=== PATIENT | female | born 1990 | race Caucasian/White ===

== ENCOUNTER → 2024-06-15 08:38 | Outpatient (CLI) | payer OTHER, SELFPAY ==
[2024-06-15 15:05] LABS: Urine Chlamydia NOT DETECTED; Urine N gonorrhoeae NOT DETECTED
== END ==
PROVIDERS: PCP Nurse Practitioner Family; Visit Provider Obstetrics & Gynecology
DX: Z34.81 Encounter for supervision of other normal pregnancy, first trimester (principal); Z3A.08 8 weeks gestation of pregnancy
CPT/HCPCS: 87491; 87591

== ENCOUNTER → 2024-06-28 09:58 | Outpatient (CLI) | payer OTHER, SELFPAY ==
[2024-06-28 11:10] LABS: Add Manual Diff / Slide Review NO; Basophils Absolute Auto 0 /uL (0-100); Basophils Percent Auto 0.5 % (0-2); Eosinophils Absolute Auto 100 /uL (0-450); Eosinophils Percent Auto 1.9 % (2-4); Hemoglobin 12.7 g/dL (12.0-16.0); Lymphocytes Absolute Auto 2500 /uL (1100-4500); Lymphocytes Percent Auto 38.1 % (25-40); Mean Corpuscular HGB Conc 33.4 % (30-36); Mean Corpuscular Hemoglobin 29.3 PG (26-34); Mean Corpuscular Volume 87.5 fL (80-100); Monocytes Absolute Auto 400 /uL (0-900); Monocytes Percent Auto 6.3 % (3-14); Neutrophils Absolute Auto 3500 /uL (1500-7000); Neutrophils Percent Auto 53.2 % (50-75); Platelet Count 298 X10^3/uL (150-400); Red Blood Cell Count 4.34 X10^6/uL (4.0-5.2); Red Cell Distribution Width 14.6 % (11.6-14.8); White Blood Cell Count 6.5 X10^3/uL (4.5-11.0)
[2024-06-28 11:45] LABS: Natera Collection Specimen Collected
[2024-06-28 14:55] LABS: Hepatitis B Surface Antigen NEGATIVE s/c (NEGATIVE); Rubella Antibody IgG 95.9 IU/mL (>15)
[2024-06-28 15:08] LABS: HIV 1 & 2 Ab/Ag 4th Gen Combo NEGATIVE (NEGATIVE); Hep C Virus Ab w/Reflex Quant NEGATIVE s/c (NEGATIVE)
[2024-06-29 06:36] LABS: RPR Screen Non Reactive (Non Reactive)
[2024-06-29 10:21] LABS: Varicella IgG Antibody Non Reactive (Non Reactive)
== END ==
PROVIDERS: PCP Nurse Practitioner Family; Referring Provider Nurse Practitioner Family; Visit Provider Obstetrics & Gynecology
DX: Z34.81 Encounter for supervision of other normal pregnancy, first trimester (principal); Z36.0 Encounter for antenatal screening for chromosomal anomalies
CPT/HCPCS: 36415; 80055; 86787; 86803; 86850; 86900; 86901; 87077; 87086; 87147; 87389

== ENCOUNTER → 2024-08-10 08:29 | Outpatient (CLI) | payer OTHER, SELFPAY | PROVIDERS: PCP Nurse Practitioner Family; Referring Provider Obstetrics & Gynecology; Visit Provider Obstetrics & Gynecology | DX: Z34.82 Encounter for supervision of other normal pregnancy, second trimester (principal) | CPT/HCPCS: 36415; 82105 ==

== ENCOUNTER → 2024-09-04 08:08 | Outpatient (CLI) | payer OTHER, SELFPAY ==
--- NOTE | 2024-09-04 08:09 | DI.US.S_ITS ---
PROCEDURE: US OB >= 14 WEEKS FETUS INDICATIONS: ANATOMY OUTSIDE/PRIOR DATING DATA: Working NICANOR is 01/21/2025 TECHNIQUE: Real-time scanning was performed of the fetus, with image documentation and biometric measurements. Endovaginal scanning: No COMPARISON: None. FINDINGS: General: A single living intrauterine gestation is present. Presentation: Variable. Placenta: Placental position is fundal , without previa. Amniotic fluid index: 15.6 cm, normal range is 5-24 cm. Single deepest vertical pocket is 5.5 cm. heart rate: 160 beats per minute. Maternal cervical canal: 4.6 cm long. Normal lower limit is 2.5 cm. biometrics: Biparietal diameter: 4.6 cm, 20 weeks Head circumference: 17.5 cm, 20 weeks Abdominal circumference: 17.2 cm, 22 weeks and 1 day Femur length: 3.3 cm, 20 weeks and 1 day Clinically estimated gestational age: 20 weeks and 1 day Composite gestational age from present scan: 20 weeks and 4 days Estimated weight and percentile: 400 g, 92% Anatomic survey: Neuro: Ventricles are non-dilated at less than 10 mm. Cisterna magna is normal at 3-11 mm. Cerebellum is normal in size and morphology. Nuchal skin fold: Normal at less than 6 mm between 14-21 weeks gestational age. Face: Profile not well seen. Nose lips unremarkable. Spine: Sacral spine not well seen. Heart: Four-chamber view unremarkable. Outflow tracts not well seen. Diaphragm: Diaphragm is intact. Stomach: Left-sided stomach is present. Kidneys: No hydronephrosis. Normal is less than 5 mm in 2nd trimester, less than 7 mm in 3rd trimester. Cord: Not well seen Bladder: Normal in size. Extremities: All 4 extremities identified. IMPRESSION: Living intrauterine gestation with variable presentation. Normal DUNG. EFW slightly greater than expected, at the 92 percentile. Facial profile, sacral spine, cardiac outflow tracts, three-vessel cord were not well seen. No significant abnormalities elsewhere. Short interval follow-up recommended Dictated by: Boni Jose M.D. on 09/04/2024 at 15:34 Approved by: Boni Jose M.D. on 09/04/2024 at 15:37
== END ==
PROVIDERS: PCP Nurse Practitioner Family; Referring Provider Obstetrics & Gynecology; Visit Provider Obstetrics & Gynecology
DX: O26.842 Uterine size-date discrepancy, second trimester (principal); Z3A.20 20 weeks gestation of pregnancy
CPT/HCPCS: 76811

== ENCOUNTER → 2024-09-25 08:09 | Outpatient (CLI) | payer OTHER, SELFPAY ==
--- NOTE | 2024-09-25 08:11 | DI.US.S_ITS ---
PROCEDURE: US OB FOLLOW UP INDICATIONS: incomplete anatomy scan OUTSIDE/PRIOR DATING DATA: Last menstrual period (LMP): 04/16/24. LMP-based estimated date of delivery (NICANOR): 01/21/25. First dating scan (date and location): Unknown. Estimated date of delivery (NICANOR) from first dating scan: Not applicable. The calculations are made using the working NICANOR of 01/21/25. TECHNIQUE: Real-time scanning was performed of the fetus, with image documentation. Endovaginal scanning: Not needed COMPARISON: None. FINDINGS: A single living intrauterine gestation is present. Presentation: Breech. Placenta: Placental position is fundal, maternal right, without previa. Amniotic fluid index: 19.5 cm, normal range is 5-24 cm. Single deepest vertical pocket is 6.9 cm. heart rate: 140 beats per minute. Maternal cervical canal: Closed and 3.8 cm long. Normal lower limit is 2.5 cm. Clinically estimated gestational age: 23 weeks one day Three vessel umbilical cord, four chambered heart, cardiac outflow tracts, cord insertion and lumbosacral spine appear normal. IMPRESSION: Single living intrauterine . Completion of anatomic survey with visualization of the above normal structures. Dictated by: Belia Barajas M.D. on 09/26/2024 at 0:51 Approved by: Belia Barajas M.D. on 09/26/2024 at 15:22
== END ==
LOC: US 08:10
PROVIDERS: PCP Nurse Practitioner Family; Referring Provider Obstetrics & Gynecology; Visit Provider Obstetrics & Gynecology
DX: Z36.2 Encounter for other antenatal screening follow-up (principal); Z3A.23 23 weeks gestation of pregnancy
CPT/HCPCS: 76816

== ENCOUNTER → 2024-10-15 08:36 | Outpatient (CLI) | payer OTHER, SELFPAY ==
[2024-10-15 10:34] LABS: Add Manual Diff / Slide Review NO; Hematocrit 35.5 % (36-46); Hemoglobin 11.8 g/dL (12.0-16.0); Lymphocytes Absolute Auto 1800 /uL (1100-4500); Mean Corpuscular HGB Conc 33.3 % (30-36); Mean Corpuscular Hemoglobin 30.4 PG (26-34); Mean Corpuscular Volume 91.2 fL (80-100); Platelet Count 284 X10^3/uL (150-400)
[2024-10-15 10:54] LABS: GTT (PREG) 1 Hour PP 50gm Dose 97 mg/dL (76-139)
[2024-10-16 08:36] LABS: Rubeola Measles IgG < 13.5 AU/mL (Immune >16.4)
== END ==
PROVIDERS: Family Provider Nurse Practitioner Family; PCP Nurse Practitioner Family; Referring Provider Obstetrics & Gynecology; Visit Provider Obstetrics & Gynecology
DX: Z34.92 Encounter for supervision of normal pregnancy, unspecified, second trimester (principal); Z01.84 Encounter for antibody response examination; Z3A.25 25 weeks gestation of pregnancy; Z3A.26 26 weeks gestation of pregnancy
CPT/HCPCS: 36415; 82950; 85025; 86735; 86762; 86765

== ENCOUNTER → 2024-12-25 10:04 | Outpatient (CLI) | payer OTHER, SELFPAY ==
[2024-12-26 08:29] LABS: Strep Grp B PCR POS for Grp B Strep
== END ==
PROVIDERS: Visit Provider Obstetrics & Gynecology
DX: Z34.83 Encounter for supervision of other normal pregnancy, third trimester (principal); Z3A.36 36 weeks gestation of pregnancy
CPT/HCPCS: 87186; 87653

== ENCOUNTER 2025-01-16 22:13 | Inpatient (IN) | payer OTHER, SELFPAY ==
[2025-01-16 23:54] LABS: Add Manual Diff / Slide Review NO; Hematocrit 32.5 % (36-46); Hemoglobin 10.7 g/dL (12.0-16.0); Lymphocytes Absolute Auto 2400 /uL (1100-4500); Mean Corpuscular HGB Conc 33.0 % (30-36); Mean Corpuscular Hemoglobin 27.7 PG (26-34); Mean Corpuscular Volume 83.9 fL (80-100); Platelet Count 247 X10^3/uL (150-400)
[2025-01-17] MEDS: LACTATED RINGERS 1,000 ML 100 ML IV (00:01)
[2025-01-17] MEDS: CLINDAMYCIN 900 MG/50 ML PIGGYBACK 50 MG IV (00:01)
--- NOTE | 2025-01-17 01:47 | PM.AN.REGBLK ---
Regional Block Pre-procedure Procedure: Continuous Lumbar Epidural for L&D Attending OB provider: Sid Pate PMH/ROS narrative: , 40wks, spontaneous labor, membranes intact. PMH negative with exception of GERD with this . PSH/Anesthesia history narrative: Previous epidural wore off. Exam narrative: Mall 2, good dentition ASA Class: II Labs: Hct 32.5 % (36-46) L 01/16/25 23:41 Plt Count 247 X10^3/uL (150-400) 01/16/25 23:41 Medications: Current Medications Generic Name Dose Route Start Last Admin Trade Name Freq PRN Reason Stop Dose Admin Calcium Carbonate 1,000 mg 01/16/25 22:59 Calcium Carbonate 500 Mg Tab PO Q2HR PRN Dyspepsia Carboprost Tromethamine 250 mcg 01/16/25 22:59 Carboprost 250 Mcg/Ml Ampul IM Q90M PRN Bleeding Fentanyl 50 mcg 01/16/25 22:59 Fentanyl 100 Mcg/2 Ml Inj IV Q1H PRN Pain, Moderate (4-6) Oxytocin/Lactated Ringer's 30 unit in 500 mls @ 200 mls/hr 01/16/25 22:59 Oxytocin Premix IV CONT PRN Bleeding Protocol Tranexamic Acid 1,000 mg/ 100 mls @ 600 mls/hr 01/16/25 22:59 Sodium Chloride IV NOW PRN Bleeding Clindamycin Phosphate 900 mg in 50 mls @ 50 mls/hr 01/16/25 23:00 01/17/25 00:01 Cleocin IV 50 mls/hr Q8H JOSE JUAN Administration Oxytocin/Lactated Ringer's 30 unit in 500 mls @ 2 mls/hr 01/16/25 23:00 Oxytocin Premix IV TITRATE JOSE JUAN Protocol 2 MILLIUNIT/MIN Lactated Ringer's 1,000 mls @ 100 mls/hr 01/16/25 23:00 01/17/25 00:01 Lactated Ringers IV 01/17/25 08:59 100 mls/hr CONT JOSE JUAN Administration Lidocaine HCl 20 ml 01/16/25 22:59 Lidocaine 1% 20 Ml INJ INTRA-OP PRN Post Delivery Methylergonovine Maleate 0.2 mg 01/16/25 22:59 Methylergonovine 0.2 Mg Tablet PO Q6HR PRN Heavy Bleeding Methylergonovine Maleate 0.2 mg 10/08/25 22:59 Methylergonovine 0.2 Mg/Ml Vial IM NOW PRN Bleeding Mineral Oil 30 ml 01/16/25 22:59 Mineral Oil 30 Ml Udc TOP PRN PRN Version Misoprostol 800 mcg 01/16/25 22:59 Misoprostol 200 Mcg Tablet MS NOW PRN Bleeding Misoprostol 400 mcg 01/16/25 22:59 Misoprostol 200 Mcg Tablet SL NOW PRN Bleeding Naloxone HCl 0.2 mg 01/16/25 22:59 Naloxone 0.4 Mg/Ml Vial IV Q2MIN PRN Opiate Reversal Ondansetron HCl 4 mg 01/16/25 22:59 Ondansetron 4 Mg/2 Ml Inj IV Q4HR PRN Nausea And Vomiting Oxytocin 10 unit 01/16/25 22:59 Oxytocin 10 Unit/Ml Vial IM NOW PRN Bleeding Allergies: Allergies Allergy/AdvReac Type Severity Reaction Status Date / Time amoxicillin Allergy Intermediate Rash Verified 01/08/25 09:09 Sulfa (Sulfonamide Allergy Intermediate Rash Verified 01/08/25 09:09 Antibiotics) Procedure Insertion date: 01/17/25 Insertion time: 01:09 Prep/Local: betadine x3 (chloraprep, dry x 3 min) and 1% lidocaine (4ml) Interspace: L4-5 Patient position: sitting Needle: 17 gauge Tuohy Loss of resistance with: saline (positive dpe) ASHLY at (cm): 5 Catheter placed at SKIN (cm): 12 Catheter in SPACE (cm): 7 Sensory level: T10 Insertion: No CSF, No Blood, No Paresthesia with insertion, No Paresthesia with injection and No Test dose reaction Initial Medications TEST DOSE time: 01:21 BOLUS DOSE time: :35 BOLUS DOSE (mL): 7 BOLUS DOSE med: other (pump solution) Infusion INFUSION: 0.125% bupivacaine and with fentanyl 2 mcg/mL Initial rate (mL/hr): 10 Post-procedure Anesthesia date START: 01/17/25 Anesthesia time START: 01:09
--- NOTE | 2025-01-17 06:42 | PM.OBHP.IH.1 ---
OB HPI Date/Time Date of admission: 01/17/25 History of Present Condition Chief complaint: labor & Delivery NICANOR Calculator Estimated Delivery Date Method Current WG Current Estimate 01/21/25 LMP (Certain) 39w 3d Other Estimates 01/23/25 Ultrasound #1 39w 1d Estimated Gestational Age (weeks): 39+3 : 2 Para: 1 Narrative: 34-year-old at [place] 39+3 weeks presenting for labor. Endorses normal movement. Denies vaginal bleeding or denies leakage of fluid. course notable for GBS positive RV swab, otherwise uncomplicated. care: good care Dating criteria OB: LMP confirmed by 1st trimester US Ultrasounds: normal 1st trimester US and normal mid trimester US Preadmission Labs Last OB Lab Results: Blood Type A Positive 01/16/25, 23:41 Antibody Screen Negative 01/16/25, 23:41 Hct, (36-46) 32.5 % L 01/16/25, 23:41 Hgb, (12.0-16.0) 10.7 g/dL L 01/16/25, 23:41 Hep Bs Antigen, (NEGATIVE) Negative s/c 06/28/24, 10:45 Hepatitis C Antibody, (NEGATIVE) Negative s/c 06/28/24, 10:45 Rubella Antibody, (>15) 75.3 IU/mL 10/15/24, 08:42 VZV IgG Antibody, (Non Reactive) Non reactive 06/28/24, 10:45 Glucose 1 Hr 50 gm, (76-139) 97 mg/dL 10/15/24, 08:42 Group B Strep (PCR) Pos for grp b strep H 12/25/24, 10:04 Genetic Screens: Quad screen: Normal and Cell-free DNA: Normal Prior (ies) Past Pregnancies Del. Date GA/Weeks Labor Lgth Wt Sex Route Outcome Anesthesia Place Delv Breastfeed Preg Comp Name 03/14/23 40.4 14 8 lb 6 oz Female vaginal live - full term epidural [place], [place] Still going at 14 months L[place]des Evaluation Evaluation Baseline heart rate: 140 Variability: Moderate (6-25) monitor accelerations: Present Monitor Decelerations: Early Contraction Frequency (minutes): 3 Uterine Contraction Intensity: Moderate Category of Tracing: Reactive Status: Category ll Dilation (cm): 10 Effacement (%): 100 station: +1 PFSH Medical History (Updated 12/26/24 @ 09:40 by Todd Zhu MD) Pelvic floor dysfunction in female Migraine with aura Surgical History (Updated 05/31/24 @ 09:08 by Nitza Angeles, [place]) History of removal of skin mole [place] teeth removed (04/11/11) Family History (Updated 05/31/24 @ 09:10 by Nitza Angeles RN) Grandmother Breast cancer Social History (Updated 05/31/24 @ 09:10 by Nitza Angeles RN) marital status: number of children: 1 household members: spouse and children lives independently: No caregiver/support person: No housing: house pets and animals: Yes (2 dogs) education level: master's degree occupational status: previously employed current occupational exposures/hazards: No 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 He has had no other partners either. leisure activities: exercise, music and reading seatbelt use: always helmet use: Yes (Rarely participate in helmet sports) water heater temp set < 120 deg: Yes working smoke detector in home: Yes fire extinguisher in home: No carbon monox detector in home: Yes firearms in home: No do you feel safe at home: Yes Smoking Status: Never smoker second hand exposure: No alcohol intake: never substance use type: does not use during the past year weight has: remained stable well-balanced diet: daily or most days daily servings fruits/ve or more times/day caffeine: Yes (Occasional soda/tea) eating out: rarely or never Type(s) of exercise: walking, bicycling and other frequency: 3-4 times per week duration: 30-45 minutes/day Meds Home Medications and Allergies Home Medications ?Medication ?Instructions ?Recorded ?Confirmed ?Type cholecalciferol (vitamin D3) 25 25 mcg PO DAILY 05/31/24 01/15/25 History mcg (1,000 unit) capsule vitamin-ferrous sulfate tab PO 05/31/24 01/15/25 History 27 mg iron-folic acid 0.8 mg tablet famotidine 40 mg tablet 40 mg PO DAILY #30 tabs 06/15/24 01/15/25 Rx ondansetron HCl 4 mg tablet 4 mg PO Q6H PRN nausea and 06/15/24 01/15/25 Rx vomiting #30 tabs pyridoxine (vitamin B6) 50 mg 50 mg PO BID #60 tabs 06/15/24 01/15/25 Rx tablet Allergies Allergy/AdvReac Type Severity Reaction Status Date / Time amoxicillin Allergy Intermediate Rash Verified 01/08/25 09:09 Sulfa (Sulfonamide Allergy Intermediate Rash Verified 01/08/25 09:09 Antibiotics) Review of Systems Review of Systems ROS: Yes All systems reviewed with the patient and are negative except as otherwise documented OB Exam Narrative Exam Narrative: General: Well-nourished, no distress HEENT: [place]/AT, EOMI, moist mucous membranes CV: RRR, normal S1 S2, no m/g/r Resp: CTAB Abd: Gravid, soft, NTND, +BS Ext: Full ROM, no edema Skin: No rash or lesions Neuro: A&O x3, normal tone, no focal deficits Objective Labs 01/16/25 23:41 Labs: Laboratory Results - last 24 hr 01/16/25 23:41 WBC 9.5 RBC 3.87 L Hgb 10.7 L Hct 32.5 L MCV 83.9 MCH 27.7 MCHC 33.0 RDW 15.4 H Plt Count 247 Neut % (Auto) 67.2 Lymph % (Auto) 25.2 [place] % (Auto) 5.8 Eos % (Auto) 0.8 L Baso % (Auto) 1.0 Neut # (Auto) 6400 Lymph # (Auto) 2400 [place] # (Auto) 600 Eos # (Auto) 100 Baso # (Auto) 100 Blood Type A Positive Antibody Screen Negative Assessment and Plan Assessment and Plan Assessment and Plan narrative: 34-year-old at [place] 39+3 weeks admitted for labor. notable for GBS positive status. -admit to L&D -GBS positive, clindamycin ppx indicated due to amoxicillin allergy -pain control prn if desired by patient -PPH risk low -VTE risk low, SCDs with epidural -anticipate vaginal delivery Time-Based Coding :: 20 minutes spent with patient and on the chart (including review of chart, obtaining history, exam, reviewing outside data, placing orders, documenting exam and treatment plan, and counseling patient) on 01/17/2025.
--- NOTE | 2025-01-17 06:49 | P.PCNOB_ITS ---
Labor & Delivery Delivery date: 01/17/25 Delivery Time: 06:01 Intrapartal Events: Acceleration and Deceleration Delivery monitor: external FHT and external uterine Route of delivery: L&D Laceration Description: Labial (left) Delivery repair: chromic (4-0) Estimated blood loss (mL): 150 Anesthesia Type: Epidural Narrative: Patient fully dilated at 0432 and began pushing at 0512. Spontaneous vaginal delivery of a viable male infant in the OP position occurred at 0601. The was suctioned and stimulated at the perineum, and gave appropriate cry with movement of all extremities. Delayed cord clamping was observed for >60 seconds. The cord was clamped and cut, and the handed to mother for skin to skin. Cord blood and segment were obtained. The placenta was delivered without difficulty using gentle cord traction and found to be intact with a 3- vessel cord. After fundal massage the uterus was firm and bleeding stopped. The vagina and cervix were examined for lacerations. A left labial tear was noted and repaired with 4-0 chromic suture in the usual fashion. Patient stable with rooming in, bonding skin to skin and attempting to breastfeed. Baby 1: Infant gender: Male Presentation: vertex Position: Occiput Posterior Placenta delivery description: Spontaneous Cord Vessel Description: 3 Vessels score (1 min): 8 score (5 min): 9 weight: 8 lb 3.889 oz Plan for aftercare: Routine care
[2025-01-17] MEDS: IBUPROFEN 600 MG TABLET PO ×3 (07:46→19:28)
[2025-01-17] MEDS: DERMOPLAST SPRAY 20% 60 ML 1 SPRAY TOP (07:47)
[2025-01-17] MEDS: LANOLIN OINT 7 GM 1 APPLIC TOP (07:47)
[2025-01-17] MEDS: ACETAMINOPHEN 325 MG TABLET 650 MG PO (19:29)
[2025-01-18] MEDS: ACETAMINOPHEN 325 MG TABLET 650 MG PO ×2 (02:03→08:16)
[2025-01-18] MEDS: IBUPROFEN 600 MG TABLET PO ×2 (02:04→08:16)
--- NOTE | 2025-01-18 12:03 | PM.OBDS.1 ---
Discharge Providers Provider Date of admission: 01/16/25 22:13 Discharge Date: 01/18/25 Primary care physician: Aron ARCHIBALD Provider Consults: 01/16/25 22:59 Consult to Anesthesiology Urgent Comment: Consulting Provider: Anesthesiologist Reason for consultation: Epidural 01/17/25 07:26 Consult to Corporate Sales Representative Routine Comment: Discharge provider: Sid Pate MD Summary Hospital Course Date Patient Seen: 01/18/25 Diagnoses: #term labor # Hospital Course: Admitted for normal labor on 01/16/2025. Progressed adequately without augmentation to complete dilation over the course of 6 hours. She had an uncomplicated of a live male infant with a left-sided labial laceration that was repaired. Her course was uncomplicated. At discharge patient is ambulating well, tolerating normal diet, breast-feeding without difficulty, and pain is adequately controlled. She reports bleeding is similar to normal menses. Peripartum Data Delivery Method: Natural Vaginal Laceration Description: Labial (left) complications: none 1: Gender: Male Disposition of : home Status at Discharge Cognitive/behavioral status at discharge: oriented Functional status at discharge: independent ambulation Overall status at discharge: patient is progressing back to baseline Time Spent with Patient Time attestation: Total time spent providing and/or coordinating discharge services: 20 minutes Objective Labs 01/16/25 23:41 Exam Narrative Exam Narrative: General: Well-appearing, well-nourished, no distress HEENT: Moist mucous membranes, no pallor CV: Regular rate and rhythm, no murmur auscultated Resp: CTAB, comfortable work of breathing Abdomen: Soft, bowel sounds present, fundus firm below umbilicus with appropriate tenderness Extremities: No edema, no calf tenderness or evidence of DVT Discharge Plan Discharge Plan Patient Disposition: Home Discharge orders & Medications Prescriptions: New acetaminophen 325 mg Tablet 650 mg PO Q6H PRN (Reason: Pain, Mild (1-3)) Qty: 60 0RF Dermoplast (with menthol) 20-0.5 % Aerosol 1 spray topical Q1HR PRN (Reason: Pain, Moderate (4-6)) Qty: 78 1RF ibuprofen 600 mg Tablet 600 mg PO Q6H Qty: 60 0RF Purelan Cream 1 applic topical PRN PRN (Reason: Sore Nipples) Qty: 7 11RF polyethylene glycol 3350 17 gram/dose powder 17 g PO DAILY Qty: 510 1RF Continued pyridoxine (vitamin B6) 50 mg tablet 50 mg PO BID Qty: 60 3RF ondansetron HCl 4 mg tablet 4 mg PO Q6H PRN (Reason: nausea and vomiting) Qty: 30 0RF famotidine 40 mg tablet 40 mg PO DAILY Qty: 30 3RF vit-ferrous sulfat-FA 27 mg iron- 0.8 mg tablet PO cholecalciferol (vitamin D3) 25 mcg (1,000 unit) capsule 25 mcg PO DAILY Follow up/Referrals: Any Morales MD [Physician, SCIENTIFIC PHOTOGRAPHER] - 02/27/25 10:30 am Discharge Health Status Multidrug resistant organism: No MDRO Diet/Activity/Treatments Diet: Diet as Tolerated Visit Report/Discharge Packet Instructions: DI for Hemorrhage, DI for Depression Stand Alone Forms: Patient Portal/API, Stroke Signs & Symptoms Discharge Data Primary Care Provider: ProviderAron
== END 2025-01-18 12:13 | disposition home or self-care (01) | DRG 807 ==
PROVIDERS: Admitting Provider Family Medicine; Referring Provider Family Medicine; Visit Provider Family Medicine
DX: O99.824 Streptococcus B carrier state complicating childbirth (principal); Z37.0 Single live birth; Z3A.39 39 weeks gestation of pregnancy; O76 Abnormality in fetal heart rate and rhythm complicating labor and delivery; O70.0 First degree perineal laceration during delivery
CPT/HCPCS: 36415; 59025; 59050; 59400; 59409; 85025; 86850; 86900; 86901; G0379; J7120